=== PATIENT | male | born 1950 | race Caucasian/White ===

== ENCOUNTER 2018-04-17 06:34 | Day surgery (SDC) | payer OTHER ==
--- NOTE | 2018-04-15 10:44 | EKG ---
Test Date: 2018-04-15 Test Time: 10:16:56 [employer] Sales Representative: KELVIN MEASUREMENT RESULTS: Intervals: Rate: 53 IL: 166 QRSD: 108 QT: 396 QTc: 371 [place]: P: 57 IL: 166 QRS: 5 T: 14 INTERPRETIVE STATEMENTS: Sinus bradycardia Otherwise normal ECG Compared to ECG 10/28/2017 14:11:19 No significant changes Electronically Signed On 04-15-18 10:43:36 CDT by Laureano Gonzales
[2018-04-15 11:20] LABS: Absolute Lymphocytes (CBC) 1.2 K/uL (0.7-4.9); Absolute Monocytes 0.6 K/uL (0.1-1.3); Absolute Neutrophil 4.8 K/uL (1.8-8.0); Eosinophils % 2.3 % (0-4.4); Hematocrit 43.7 % (39.6-49.0); Lymphocytes % 17.8 % (15.3-44.8); MCH 29.7 pg (27.0-35.0); MCV 87.5 fL (80-100); MPV 9.2 fL (7.6-11.3); RBC Red Blood Cell Count 4.99 M/uL (4.33-5.43)
--- NOTE | 2018-04-15 11:26 | RAD REPORT ---
EXAM DESCRIPTION: Cassandra Cantu (2 Views)04/15/2018 10:32 am CLINICAL HISTORY: Preop for excision of a mandibular mass COMPARISON: October 2017 FINDINGS: The lungs appear clear of acute infiltrate. The heart is normal size IMPRESSION: No acute abnormalities displayed
[2018-04-15 11:29] LABS: Potassium 4.1 mmol/L (3.5-5.1)
[2018-04-17] MEDS ORDERED: CEFAZOLIN/SWI 1gm 1 GM/10 ML SYR ONE (06:46)
[2018-04-17] MEDS ORDERED: Ringers Lactate 1,000 ML IV ONE (06:46)
[2018-04-17] MEDS ORDERED: BUPIVACAINE 0.5% PF 10 ML VIAL ONE (07:03)
[2018-04-17] MEDS ORDERED: PROPOFOL 200 MG/20 ML VIAL IV ONE (07:09)
[2018-04-17] MEDS ORDERED: FENTANYL CITR 100 MCG/2 ML ONE (07:09)
[2018-04-17] MEDS ORDERED: ROCURONIUM 50 MG/5 ML VIAL IV ONE (07:09)
[2018-04-17] MEDS ORDERED: LIDOCAINE 1% MPF 5 ML VIAL ONE (07:09)
[2018-04-17] MEDS ORDERED: MIDAZOLAM HCL 2 MG/2 ML INJ ONE (07:09)
[2018-04-17] MEDS ORDERED: KETOROLAC 30 MG/ML INJ ONE (08:03)
[2018-04-17] MEDS ORDERED: ONDANSETRON HCL 40 MG/20 ML VIAL ONE (08:06)
[2018-04-17] MEDS ORDERED: SUCCINYLCHOLINE 20 MG/ML (10 ML) IV ONE (08:26)
--- NOTE | 2018-04-17 19:07 | DS ---
Date of Discharge: 04/17/2018 Discharge Note: The patient will go to Day Surgery and home when stable. Disposition: Home. Condition: Stable. Discharge Instructions: Resume home medications and diet. Activity as tolerated. No heavy lifting. Remove outer dressing in 2 days. Shower. Keep wound clean and dry. Keep Steri-Strips on at all t imes. Tylenol No. 3 one tablet p.o. q.4 p.r.n. pain. Follow up in my office in 1 week. Call for ap pointment. /MODL Voice ID: [id number] Report ID: [id number]
--- NOTE | 2018-04-17 19:07 | OP ---
Date of Procedure: 04/17/2018 Surgeon: Emil Torres MD Preoperative Diagnosis: Left face mass. Postoperative Diagnosis: Left face mass. Procedure: Excision of left face mass 4 x 2 cm with layered closure. Estimated Blood Loss: Minimal. Specimen: Left face mass. Finding: As above. Anesthesia: General. Complications: None. Disposition: The patient tolerated the procedure in stable condition and taken to Recovery in good g eneral condition. Procedure In Detail: The patient was brought to the OR and placed in supine position. General anest hesia begun. The patient's face was turned to the right side and then prepped and draped in the usua l sterile fashion. Marcaine 0.5% was infiltrated at the end of the case. A 4 cm incision was made a long skin lines at the angle of the left mid jaw. Subcutaneous tissue divided and deep to the subcut aneous tissue, a well-encapsulated nodule was present approximately 4 x 2 cm. It was excised and sen t to Pathology as specimen. Wound irrigated. Bleeding controlled with cautery. A 2-0 chromic used to approximate the subcutaneous tissue, and also closed skin. Sterile dressing was applied. The patient was awakened and taken to Recovery in good general condition. /MODL Voice ID: [id number] Report ID: [id number]
== END 2018-04-17 09:30 | disposition home or self-care (01) ==
LOC: OR 06:34
PROVIDERS: ATTEND Surgery
PROC: 0JB10ZZ Excision of Face Subcutaneous Tissue and Fascia, Open Approach (ICD-10-PCS; principal; 2018-04-17 07:30)
DX: D36.7 Benign neoplasm of other specified sites (principal); K51.90 Ulcerative colitis, unspecified, without complications
CPT/HCPCS: 13132; 21012; 36415; 71046; 80048; 85025; 88305; 93005; J0330; J0690; J2250; J2405; J3010; 88307

== ENCOUNTER 2018-04-19 09:28 | Emergency (ER) | payer OTHER ==
[2018-04-19] MEDS ORDERED: BISACODYL 10 MG RECTAL SUPP ONE (10:20)
[2018-04-19] MEDS ORDERED: NA CHLORIDE 0.9% 1,000 ML ONE (10:20)
[2018-04-19] MEDS ORDERED: LACTULOSE 20 GM/30 ML UCUP ONE (10:21)
[2018-04-19 10:37] LABS: Urine Blood NEGATIVE (NEG); Urine Glucose NEGATIVE (NEG); Urine Protein 1+ (NEG); Urine Specific Gravity 1.015 (1.005-1.030)
[2018-04-19 10:40] LABS: Urine Bacteria <20 /HPF (NONE SEEN); Urine RBC <5 /HPF (NONE SEEN)
[2018-04-19 10:40] LABS: Absolute Lymphocytes (CBC) 0.7 K/uL (0.7-4.9); Absolute Monocytes 0.8 K/uL (0.1-1.3); Absolute Neutrophil 9.5 K/uL (1.8-8.0); Basophils % 0.4 % (0-1.3); Eosinophils % 0.3 % (0-4.4); Hematocrit 43.7 % (39.6-49.0); Lymphocytes % 6.4 % (15.3-44.8); MCH 29.6 pg (27.0-35.0); MCV 88.6 fL (80-100); MPV 8.3 fL (7.6-11.3); Monocytes % 7.1 % (3.3-12.3); RBC Red Blood Cell Count 4.94 M/uL (4.33-5.43)
[2018-04-19 10:41] LABS: Urine Culture Reflex Order NOT NEEDED
[2018-04-19 11:03] LABS: ALT/SGPT 28 U/L (12-78); AST/SGOT 19 U/L (15-37); Albumin 3.9 g/dL (3.4-5.0); Alkaline Phosphatase 70 U/L (45-117); BUN Blood Urea Nitrogen 15 mg/dL (7-18); Bicarbonate 31 mmol/L (21-32); Bilirubin Direct 0.2 mg/dL (0-0.2); Bilirubin Total 1.1 mg/dL (0.2-1.0); Glucose Level 102 mg/dL (74-106); Lipase 116 U/L (73-393); Potassium 4.1 mmol/L (3.5-5.1); Protein, Total 7.6 g/dL (6.4-8.2); Sodium Level 137 mmol/L (136-145)
[2018-04-19 11:13] LABS: Amylase Level > 1300 U/L (25-115)
--- NOTE | 2018-04-19 11:59 | RAD REPORT ---
EXAM DESCRIPTION: CT - Abdomen Pelvis W Contrast - 04/19/2018 11:46 am CLINICAL HISTORY: Abdominal pain, constipation COMPARISON: CT imaging October 2017 TECHNIQUE: Biphasic, helical CT imaging of the abdomen and pelvis was performed following 100 ml non -ionic IV contrast. Oral contrast was given. All CT scans are performed using dose optimization technique as appropriate and may include automated exposure control or mA/KV adjustment according to patient size. FINDINGS: No suspicious findings in the lung bases. The liver, spleen, and pancreas show no suspicious findings. Gallbladder and biliary tree are also wi thout suspicious finding. Symmetric renal function is seen with no hydronephrosis or suspicious renal mass. No pyelonephritis o r acute renal parenchymal process. Partially filled urinary bladder shows no suspicious finding. Pros montiel gland is normal size. No gastric dilatation or gastric wall thickening. No small bowel abnormality. Appendix is normal. Mod erate severity sigmoid diverticulosis without diverticulitis. No abnormal volume of stool evident. Or al contrast has reached the splenic flexure. No appendicitis. No free air, free fluid or inflammatory stranding. No mass or bulky lymphadenopathy. Fat extends in to the origin of the left inguinal canal. No adrenal abnormality. No suspicious bony findings. IMPRESSION: Moderate sigmoid diverticulosis without diverticulitis. No significant bowel finding derek ntifiable. No abnormal stool volume. Gallbladder and biliary tree are normal range. No acute finding.
--- NOTE | 2018-04-19 12:12 | ER ---
Nurse's Notes [facility] Name: Josse Brumfield Age: 67 yrs Sex: Male : 1950 Arrival Date: 04/19/2018 Time: 09:31 Bed 20 Private MD: Reggie Pickard Diagnosis: Abdominal tenderness;Constipation;Diverticular disease of intestine Presentation: 04/19 09:41 Presenting complaint: Patient states: has been constipated since Friday, last BM was iw Friday morning, had surgery to remove cyst on left jaw Fri, has been on Tylenol with codeine since then, denies abd pain or cramping. Transition of care: patient was not received from another setting of care. Onset of symptoms was April 19, 2018. Risk Assessment: Do you want to hurt yourself or someone else? Patient reports no desire to harm self or others. Initial Sepsis Screen: Does the patient meet any 2 criteria? No. Patient's initial sepsis screen is negative. Does the patient have a suspected source of infection? No. Patient's initial sepsis screen is negative. Care prior to arrival: Medication(s) given: fleets enema, no relief. 09:41 Method Of Arrival: Ambulatory iw 09:41 Acuity: SHAHRZAD 3 iw Historical: - Allergies: 10:04 NKA; iw - PMHx: 10:04 ulcerative colitis; iw - PSHx: 10:04 cyst removal-left jaw; iw - Immunization history:: Adult Immunizations not up to date. - Social history:: Smoking status: Patient/guardian denies using tobacco. - Family history:: not pertinent. - Ebola Screening: : Patient negative for fever greater than or equal to 101.5 degrees Fahrenheit, and additional compatible Ebola Virus Disease symptoms Patient denies exposure to infectious person Patient denies travel to an Ebola-affected area in the 21 days before illness onset No symptoms or risks identified at this time. Screenin:28 Abuse screen: Denies threats or abuse. Nutritional screening: No deficits noted. em Tuberculosis screening: No symptoms or risk factors identified. Fall Risk None identified. Assessment: 10:08 General: Appears in no apparent distress. comfortable, Behavior is calm, cooperative. em General: Reports constipation since Friday, denies pain. Pain: Denies pain. Neuro: Level of Consciousness is awake, alert, obeys commands, Oriented to person, place, time, situation. Cardiovascular: Capillary refill < 3 seconds Patient's skin is warm and dry. Respiratory: Airway is patent Respiratory effort is even, unlabored, Respiratory pattern is regular, symmetrical. GI: Abdomen is round non-distended, Last BM was April 17, 2018. Bowel sounds present X 4 quads. Abd is soft X 4 quads Abdomen is tender to palpation X 4 quads. Reports constipation, Patient currently denies nausea, vomiting. : No signs and/or symptoms were reported regarding the genitourinary system. EENT: No signs and/or symptoms were reported regarding the EENT system. Derm: Skin is intact, Skin is pink, warm \T\ dry. swelling noted to left side of face, had abscess drained on Friday, steri stripped, no drainage noted. Musculoskeletal: Range of motion:. 10:20 Reassessment: Patient appears in no apparent distress at this time. I agree with above iw assessment by Denis Mullins LVN. 10:46 Reassessment: Patient appears in no apparent distress at this time. Patient and/or em family updated on plan of care and expected duration. Pain level reassessed. Patient is alert, oriented x 3, equal unlabored respirations, skin warm/dry/pink. pending CT. 11:27 Reassessment: Patient appears in no apparent distress at this time. Patient and/or em family updated on plan of care and expected duration. Pain level reassessed. Patient is alert, oriented x 3, equal unlabored respirations, skin warm/dry/pink. reports having a moderate BM, feeling better. 12:23 Reassessment: Patient appears in no apparent distress at this time. Patient and/or em family updated on plan of care and expected duration. Pain level reassessed. Patient is alert, oriented x 3, equal unlabored respirations, skin warm/dry/pink. pt up for discharge at this time, pending completion of NS bolus Patient states feeling better. 12:59 Reassessment: Patient appears in no apparent distress at this time. Patient and/or em family updated on plan of care and expected duration. Pain level reassessed. Patient is alert, oriented x 3, equal unlabored respirations, skin warm/dry/pink. pt had x 2 other BM while in ER, reports feeling better Patient states feeling better. Patient states symptoms have improved. Vital Signs: 09:44 BP 141 / 82; Pulse 73; Resp 16; Temp 98.2; Pulse Ox 98% on R/A; Weight 77.11 kg; Height iw 5 ft. 10 in. (177.80 cm); Pain 0/10; 10:47 BP 152 / 89; Pulse 79; Resp 18; Pulse Ox 96% on R/A; Pain 0/10; em 11:45 BP 135 / 79; Pulse 72; Resp 16; Pulse Ox 98% on R/A; em 12:30 BP 141 / 83; Pulse 76; Resp 18; Pulse Ox 96% on R/A; Pain 0/10; em 09:44 Body Mass Index 24.39 (77.11 kg, 177.80 cm) iw ED Course: 09:31 Patient arrived in ED. mr 09:31 Reggie Pickard MD is Private Physician. mr 09:44 Triage completed. iw 09:44 Arm band placed on. iw 09:47 Denis Mullins LVN is Primary Nurse. em 09:48 Samir Ramos MD is Attending Physician. islverio 10:24 Amylase, Serum Sent. mh5 10:24 Basic Metabolic Panel Sent. mh5 10:24 CBC with Diff Sent. 5 10:24 Creatinine for Radiology Sent. mh5 10:24 Hepatic Function Sent. 5 10:24 Lipase Sent. 5 10:24 Urine Microscopic Only Sent. mh5 10:25 Patient has correct armband on for positive identification. Placed in gown. Bed in low mh5 position. Call light in reach. Side rails up X 1. Adult w/ patient. Warm blanket given. Pillow given. Pulse ox on. NIBP on. 10:25 Initial lab(s) drawn, by de, sent to lab. Urine collected: clean catch specimen, clear. mh5 Inserted saline lock: 20 gauge in right antecubital area, using aseptic technique. Blood collected. 11:17 Notified ED physician of a critical lab result(s). Amylase=>1300. iw 11:42 CT completed. Patient moved to CT via wheelchair. Patient moved back from CT. cw1 11:47 CT Abd/Pelvis - W/Contrast In Process Unspecified. EDMS 12:12 Reggie Pickard MD is Referral Physician. silverio 12:34 No provider procedures requiring assistance completed. em 12:58 IV discontinued, intact, bleeding controlled, No redness/swelling at site. Pressure em dressing applied. Administered Medications: 10:27 Drug: NS 0.9% 1000 ml Route: IV; Rate: 1 bolus; Site: right antecubital; em 13:05 Follow up: IV Status: Completed infusion; IV Intake: 1000ml em 10: Drug: Dulcolax Suppository 10 mg Route: [place]; em 11:26 Follow up: Response: Marked relief of symptoms em 10:27 Drug: Lactulose 30 grams Volume: 45 ml; Route: PO; em 11:26 Follow up: Response: No adverse reaction; Marked relief of symptoms em 12:20 Drug: Cipro 500 mg Route: PO; em 13:05 Follow up: Response: No adverse reaction em 12:20 Drug: Flagyl 500 mg Route: PO; em 13:05 Follow up: Response: No adverse reaction em Intake: 13:05 IV: 1000ml; Total: 1000ml. em Outcome: 12:12 Discharge ordered by . [facility] 12:58 Discharged to home ambulatory, with family. em 12:58 Condition: good 12:58 Discharge instructions given to patient, family, Instructed on discharge instructions, follow up and referral plans. Demonstrated understanding of instructions, follow-up care, medications, Prescriptions given X 5 13:05 Patient left the ED. em Signatures: Dispatcher [employer] Samir Hill MD MD cha Rivera, Maria Mullins, Denis, DIESEL MAINTENANCE ELECTRICIAN DIESEL MAINTENANCE ELECTRICIAN Marilee Amin RN RN iw Woodley, Crystal [address] [facility]
--- NOTE | 2018-04-19 12:12 | EDPHYS ---
Physician Documentation [facility] Name: Josse Brumfield Age: 67 yrs Sex: Male : 1950 Arrival Date: 04/19/2018 Time: 09:31 Bed 20 Private MD: Reggie Pickard ED Physician Samir Ramos HPI: 04/19 10:19 This 67 yrs old Male presents to ER via Ambulatory with complaints of silverio Constipation. 10:19 The patient presents with abdominal pain in the upper abdomen, in the lower abdomen. silverio Onset: The symptoms/episode began/occurred 3 day(s) ago. The symptoms do not radiate. Associated signs and symptoms: none. The symptoms are described as constant, crampy, steady. Severity of pain: At its worst the pain was mild moderate in the emergency department the pain is unchanged. The patient has not experienced similar symptoms in the past. The patient has not recently seen a physician. Historical: - Allergies: 10:04 NKA; iw - PMHx: 10:04 ulcerative colitis; iw - PSHx: 10:04 cyst removal-left jaw; iw - Immunization history:: Adult Immunizations not up to date. - Social history:: Smoking status: Patient/guardian denies using tobacco. - Family history:: not pertinent. - Ebola Screening: : Patient negative for fever greater than or equal to 101.5 degrees Fahrenheit, and additional compatible Ebola Virus Disease symptoms Patient denies exposure to infectious person Patient denies travel to an Ebola-affected area in the 21 days before illness onset No symptoms or risks identified at this time. ROS: 10:19 Constitutional: Negative for fever, chills, and weight loss, Eyes: Negative for injury, silverio pain, redness, and discharge, ENT: Negative for injury, pain, and discharge, Neck: Negative for injury, pain, and swelling, Cardiovascular: Negative for chest pain, palpitations, and edema, Respiratory: Negative for shortness of breath, cough, wheezing, and pleuritic chest pain, Back: Negative for injury and pain, : Negative for injury, bleeding, discharge, and swelling, MS/Extremity: Negative for injury and deformity, Skin: Negative for injury, rash, and discoloration, Neuro: Negative for headache, weakness, numbness, tingling, and seizure, Psych: Negative for depression, anxiety, suicide ideation, homicidal ideation, and hallucinations, Allergy/Immunology: Negative for hives, rash, and allergies, Endocrine: Negative for neck swelling, polydipsia, polyuria, polyphagia, and marked weight changes, Hematologic/Lymphatic: Negative for swollen nodes, abnormal bleeding, and unusual bruising. 10:19 Abdomen/GI: Positive for abdominal pain, constipation, of the epigastric area, right upper quadrant, left upper quadrant, right lower quadrant and left lower quadrant. Exam: 10:19 Constitutional: This is a well developed, well nourished patient who is awake, alert, silverio and in no acute distress. Head/Face: Normocephalic, atraumatic. Eyes: Pupils equal round and reactive to light, extra-ocular motions intact. Lids and lashes normal. Conjunctiva and sclera are non-icteric and not injected. Cornea within normal limits. Periorbital areas with no swelling, redness, or edema. ENT: Nares patent. No nasal discharge, no septal abnormalities noted. Tympanic membranes are normal and external auditory canals are clear. Oropharynx with no redness, swelling, or masses, exudates, or evidence of obstruction, uvula midline. Mucous membranes moist. Neck: Trachea midline, no thyromegaly or masses palpated, and no cervical lymphadenopathy. Supple, full range of motion without nuchal rigidity, or vertebral point tenderness. No Meningismus. Chest/axilla: Normal chest wall appearance and motion. Nontender with no deformity. No lesions are appreciated. Cardiovascular: Regular rate and rhythm with a normal S1 and S2. No gallops, murmurs, or rubs. Normal PMI, no JVD. No pulse deficits. Respiratory: Lungs have equal breath sounds bilaterally, clear to auscultation and percussion. No rales, rhonchi or wheezes noted. No increased work of breathing, no retractions or nasal flaring. Back: No spinal tenderness. No costovertebral tenderness. Full range of motion. Male : Normal genitalia with no discharge or lesions. Skin: Warm, dry with normal turgor. Normal color with no rashes, no lesions, and no evidence of cellulitis. MS/ Extremity: Pulses equal, no cyanosis. Neurovascular intact. Full, normal range of motion. Neuro: Awake and alert, GCS 15, oriented to person, place, time, and situation. Cranial nerves II-XII grossly intact. Motor strength 5/5 in all extremities. Sensory grossly intact. Cerebellar exam normal. Normal gait. Psych: Awake, alert, with orientation to person, place and time. Behavior, mood, and affect are within normal limits. 10:19 Abdomen/GI: Inspection: distension, Bowel sounds: normal, Palpation: mild abdominal tenderness, in all quadrants, Liver: no appreciated palpable abnormalities, Hernia: not appreciated. Vital Signs: 09:44 BP 141 / 82; Pulse 73; Resp 16; Temp 98.2; Pulse Ox 98% on R/A; Weight 77.11 kg; Height iw 5 ft. 10 in. (177.80 cm); Pain 0/10; 10:47 BP 152 / 89; Pulse 79; Resp 18; Pulse Ox 96% on R/A; Pain 0/10; em 11:45 BP 135 / 79; Pulse 72; Resp 16; Pulse Ox 98% on R/A; em 12:30 BP 141 / 83; Pulse 76; Resp 18; Pulse Ox 96% on R/A; Pain 0/10; em 09:44 Body Mass Index 24.39 (77.11 kg, 177.80 cm) iw MDM: 09:48 Patient medically screened. [facility] 10:21 Data reviewed: vital signs, nurses notes, lab test result(s), radiologic studies, CT silverio scan. 04/19 09:52 Order name: Amylase, Serum; Complete Time: 11:48 [facility] 04/19 09:52 Order name: Basic Metabolic Panel; Complete Time: 11:48 [facility] 04/19 09:52 Order name: CBC with Diff 04/19 09:52 Order name: Creatinine for Radiology; Complete Time: 11:48 [facility] 04/19 09:52 Order name: Hepatic Function; Complete Time: 11:48 [facility] 04/19 09:52 Order name: Lipase; Complete Time: 11:48 [facility] 04/19 09:52 Order name: Urine Microscopic Only; Complete Time: 11:48 [facility] 04/19 09:52 Order name: CT Abd/Pelvis - W/Contrast; Complete Time: 12:09 silverio 04/19 10:23 Order name: Urine Dipstick--Ancillary (enter results); Complete Time: 11:48 bd 04/19 10:45 Order name: Manual Differential EDMS 04/19 09:52 Order name: IV Saline Lock; Complete Time: 10:24 [facility] 04/19 09:52 Order name: Labs collected and sent; Complete Time: 10: [facility] 04/19 09:52 Order name: Urine Dipstick-Ancillary (obtain specimen); Complete Time: 11:28 [facility] Administered Medications: 10: Drug: NS 0.9% 1000 ml Route: IV; Rate: 1 bolus; Site: right antecubital; em 13:05 Follow up: IV Status: Completed infusion; IV Intake: 1000ml em 10: Drug: Dulcolax Suppository 10 mg Route: [place]; em 11:26 Follow up: Response: Marked relief of symptoms em 10: Drug: Lactulose 30 grams Volume: 45 ml; Route: PO; em 11: Follow up: Response: No adverse reaction; Marked relief of symptoms em 12:20 Drug: Cipro 500 mg Route: PO; em 13:05 Follow up: Response: No adverse reaction em 12:20 Drug: Flagyl 500 mg Route: PO; em 13:05 Follow up: Response: No adverse reaction em Disposition: 04/19/18 12:12 Discharged to Home. Impression: Abdominal tenderness, Constipation, Diverticular disease of intestine. - Condition is Stable. - Discharge Instructions: Abdominal Pain, Adult, Diverticulosis, Constipation, Adult, Cass-yt-Hgjz, Abdominal Pain, Adult, [id number]-[id number]. - Prescriptions for Lactulose 10 gram/15 mL Oral Solution - take 30 milliliter by ORAL route once daily; 300 milliliter. Dulcolax 10 mg Rectal Suppository - insert 1 suppository by RECTAL route every 12 hours As needed; 10 suppository. Miralax 17 gram/dose Oral - take 1 packet by ORAL route once daily dilute powder in 8 ounces of water or juice; 14 packet. Flagyl 500 mg Oral Tablet - take 1 tablet by ORAL route every 8 hours for 7 days; 21 tablet. Cipro 500 mg Oral Tablet - take 1 tablet by ORAL route every 12 hours for 7 days; 14 tablet. - Medication Reconciliation Form, Thank You Letter, Antibiotic Education, Prescription Opioid Use form. - Follow up: Reggie Pickard; When: 2 - 3 days; Reason: Recheck today's complaints, Continuance of care, Re-evaluation by your physician. - Problem is new. - Symptoms have improved. Signatures: Dispatcher [employer] EDMS Samir Ramos MD MD cha Munoz, Edgar, POWER HAMMER OPERATOR POWER HAMMER OPERATOR em Marilee Ladd, DONTRELL RN iw Corrections: (The following items were deleted from the chart) 11:28 11:15 EKG - Nurse/Tech ordered. [facility] em 11:30 11:15 CKMB+C.LAB.BRZ ordered. [facility] 11:30 11:15 CREATINE PHOSPHOKINASE+C.LAB.BRZ ordered. [facility] 11:31 11:15 TROPONIN (EMERG DEPT USE ONLY)+C.LAB.BRZ ordered. [facility] 11:54 11:15 Chest Single View+RAD.RAD.BRZ ordered. [facility] 12:12 12:12 04/19/2018 12:12 Discharged to Home. Impression: Abdominal tenderness; silverio Constipation. Condition is Stable. Discharge Instructions: Abdominal Pain, Adult, Constipation, Adult, [id number]-[id number], Abdominal Pain, Adult, Crdr-cb-[id number]. Prescriptions for Lactulose 10 gram/15 mL Oral Solution - take 30 milliliter by ORAL route once daily; 300 milliliter, Dulcolax 10 mg Rectal Suppository - insert 1 suppository by RECTAL route every 12 hours As needed; 10 suppository, Miralax 17 gram/dose Oral - take 1 packet by ORAL route once daily dilute powder in 8 ounces of water or juice; 14 packet. and Forms are Medication Reconciliation Form, Thank You Letter, Antibiotic Education, Prescription Opioid Use. Follow up: Reggie Pickard; When: 2 - 3 days; Reason: Recheck today's complaints, Continuance of care, Re-evaluation by your physician. Problem is new. Symptoms have improved. silverio 13:05 12:12 04/19/2018 12:12 Discharged to Home. Impression: Abdominal tenderness; em Constipation; Diverticular disease of intestine. Condition is Stable. Discharge Instructions: Abdominal Pain, Adult, Constipation, Adult, [id number], Abdominal Pain, Adult, Kkkq-gf-Uekh. Prescriptions for Lactulose 10 gram/15 mL Oral Solution - take 30 milliliter by ORAL route once daily; 300 milliliter, Dulcolax 10 mg Rectal Suppository - insert 1 suppository by RECTAL route every 12 hours As needed; 10 suppository, Miralax 17 gram/dose Oral - take 1 packet by ORAL route once daily dilute powder in 8 ounces of water or juice; 14 packet. and Forms are Medication Reconciliation Form, Thank You Letter, Antibiotic Education, Prescription Opioid Use. Follow up: Reggie Pickard; When: 2 - 3 days; Reason: Recheck today's complaints, Continuance of care, Re-evaluation by your physician. Problem is new. Symptoms have improved. silverio
[2018-04-19 12:16] LABS: Blood Morphology Comment NOT SEEN (NOT SEEN); Platelet Estimate ADEQ
[2018-04-19] MEDS ORDERED: CIPROFLOXACIN HCL 500 MG TAB ONE (12:19)
[2018-04-19] MEDS ORDERED: metroNIDAZOLE 500 MG TABLET ONE (12:19)
== END 2018-04-19 13:05 | disposition home or self-care (01) ==
LOC: ER 09:28
DX: K59.00 Constipation, unspecified (principal); K57.90 Diverticulosis of intestine, part unspecified, without perforation or abscess without bleeding
CPT/HCPCS: 36415; 74177; 80048; 80076; 82150; 83690; 85025; J7030; Q9967; 81003; 81015; 96360; 96361; 99284

== ENCOUNTER 2018-04-22 19:04 | Emergency (ER) | payer OTHER ==
--- NOTE | 2018-04-22 20:27 | EDPHYS ---
Physician Documentation [facility] Name: Josse Brumfield Age: 67 yrs Sex: Male : 1950 Arrival Date: 04/22/2018 Time: 19:06 Bed 27 Private MD: ED Physician Tank Otero HPI: 04/22 20:20 This 67 yrs old Male presents to ER via Ambulatory with complaints of Cyst - gs drainage to rt side of jaw. 20:20 The affected area is on the left jaw. Previous treatment: excision if mass left face gs last week now with drainage from site, clear. The patient has not experienced similar symptoms in the past. Historical: - Allergies: 19:51 NKA; aj - Home Meds: 19:51 Niacin Oral [Active]; aj 19:52 Cipro Oral [Active]; Flagyl Oral [Active]; aj - PMHx: 19:51 ulcerative colitis; aj - PSHx: 19:51 cyst removal-left jaw; aj - Immunization history:: Adult Immunizations up to date. - Social history:: Smoking status: Patient/guardian denies using tobacco. - Ebola Screening: : Patient negative for fever greater than or equal to 101.5 degrees Fahrenheit, and additional compatible Ebola Virus Disease symptoms Patient denies exposure to infectious person Patient denies travel to an Ebola-affected area in the 21 days before illness onset No symptoms or risks identified at this time. ROS: 20:20 All other systems are negative. gs Exam: 20:20 Eyes: Pupils equal round and reactive to light, extra-ocular motions intact. Lids and gs lashes normal. Conjunctiva and sclera are non-icteric and not injected. Cornea within normal limits. Periorbital areas with no swelling, redness, or edema. ENT: Nares patent. No nasal discharge, no septal abnormalities noted. Tympanic membranes are normal and external auditory canals are clear. Oropharynx with no redness, swelling, or masses, exudates, or evidence of obstruction, uvula midline. Mucous membranes moist. Neck: Trachea midline, no thyromegaly or masses palpated, and no cervical lymphadenopathy. Supple, full range of motion without nuchal rigidity, or vertebral point tenderness. No Meningismus. Chest/axilla: Normal chest wall appearance and motion. Nontender with no deformity. No lesions are appreciated. Cardiovascular: Regular rate and rhythm with a normal S1 and S2. No gallops, murmurs, or rubs. Normal PMI, no JVD. No pulse deficits. Respiratory: Lungs have equal breath sounds bilaterally, clear to auscultation and percussion. No rales, rhonchi or wheezes noted. No increased work of breathing, no retractions or nasal flaring. Abdomen/GI: Soft, non-tender, with normal bowel sounds. No distension or tympany. No guarding or rebound. No evidence of tenderness throughout. 20:20 Constitutional: The patient appears alert, awake, non-toxic. 20:20 Head/face: Noted is swelling, that is mild, of the left jaw, of the drainage clear watery fluid. Vital Signs: 19:52 BP 138 / 87; Pulse 73; Resp 18; Temp 98.1; Pulse Ox 97% on R/A; Weight 77.11 kg; Height aj 5 ft. 10 in. (177.80 cm); 19:52 Body Mass Index 24.39 (77.11 kg, 177.80 cm) aj MDM: 20:18 Patient medically screened. 20:20 Differential diagnosis: healing wound , seroma, injury to salivary gland/duct. Data reviewed: vital signs, nurses notes. Response to treatment: There is no appreciated change of the patient's symptoms at this time. ED course: expressed clear watery fluid. 20:27 Physician consultation: Emil Torres MD regarding patient's condition, and will see patient in office, tomorrow. Administered Medications: No medications were administered Disposition: 04/22/18 20:27 Discharged to Home. Impression: facial cyst. - Condition is Stable. - Medication Reconciliation Form, Thank You Letter, Antibiotic Education, Prescription Opioid Use form. - Follow up: Emil Torres MD; When: Tomorrow; Reason: Re-evaluation by your physician. Signatures: Lillian Omer RN RN aj Starr, Gregory, MD MD Kranthi Willett RN RN jd3 Corrections: (The following items were deleted from the chart) 20:34 20:27 04/22/2018 20:27 Discharged to Home. Impression: facial cyst. Condition is jd3 Stable. Forms are Medication Reconciliation Form, Thank You Letter, Antibiotic Education, Prescription Opioid Use. Follow up: Dr. Emil Torres; When: Tomorrow; Reason: Re-evaluation by your physician. gs
--- NOTE | 2018-04-22 20:27 | ER ---
Nurse's Notes [facility] Name: Josse Brumfield Age: 67 yrs Sex: Male : 1950 Arrival Date: 04/22/2018 Time: 19:06 Bed 27 Private MD: Diagnosis: facial cyst Presentation: 04/22 19:49 Presenting complaint: Patient states: Drainage to cyst on left jaw that started today. aj Drained by Dr Torres on Friday. Transition of care: patient was not received from another setting of care. Onset of symptoms was April 22, 2018. Risk Assessment: Do you want to hurt yourself or someone else? Patient reports no desire to harm self or others. Initial Sepsis Screen: Does the patient meet any 2 criteria? No. Patient's initial sepsis screen is negative. Does the patient have a suspected source of infection? No. Patient's initial sepsis screen is negative. Care prior to arrival: None. 19:49 Method Of Arrival: Ambulatory aj 19:49 Acuity: [id number] 4 aj Triage Assessment: 19:52 General: Appears in no apparent distress. comfortable, Behavior is calm, cooperative, aj appropriate for age. Pain: Denies pain. Neuro: Level of Consciousness is awake, alert, obeys commands, Oriented to person, place, time, situation, Appropriate for age. Respiratory: Airway is patent Respiratory effort is even, unlabored, Respiratory pattern is regular, symmetrical. Derm: Skin is intact, is healthy with good turgor, Skin is pink, warm \T\ dry. normal, Wound noted left cheek Wound is draining clear liquid. Historical: - Allergies: 19:51 NKA; aj - Home Meds: 19:51 Niacin Oral [Active]; aj 19:52 Cipro Oral [Active]; Flagyl Oral [Active]; aj - PMHx: 19:51 ulcerative colitis; aj - PSHx: 19:51 cyst removal-left jaw; aj - Immunization history:: Adult Immunizations up to date. - Social history:: Smoking status: Patient/guardian denies using tobacco. - Ebola Screening: : Patient negative for fever greater than or equal to 101.5 degrees Fahrenheit, and additional compatible Ebola Virus Disease symptoms Patient denies exposure to infectious person Patient denies travel to an Ebola-affected area in the 21 days before illness onset No symptoms or risks identified at this time. Screenin:14 Abuse screen: Denies threats or abuse. Nutritional screening: No deficits noted. jd3 Tuberculosis screening: No symptoms or risk factors identified. Fall Risk Ambulatory Aid- None/Bed Rest/Nurse Assist (0 pts). Gait- Normal/Bed Rest/Wheelchair (0 pts) Mental Status- Oriented to own ability (0 pts). Total Resendiz Fall Scale indicates No Risk (0-24 pts). Assessment: 20:33 General: Appears in no apparent distress. comfortable, Behavior is calm, cooperative, jd3 appropriate for age. Pain: Denies pain. Neuro: Level of Consciousness is awake, alert, obeys commands, Oriented to person, place, time, situation. Cardiovascular: No deficits noted. Respiratory: Airway is patent Respiratory effort is even, unlabored, Respiratory pattern is regular, symmetrical. GI: No signs and/or symptoms were reported involving the gastrointestinal system. : No signs and/or symptoms were reported regarding the genitourinary system. EENT: No signs and/or symptoms were reported regarding the EENT system. Derm: Skin is intact, Skin is dry, Skin is normal, Skin temperature is warm. Musculoskeletal: Circulation, motion, and sensation intact. Range of motion: intact in all extremities. Vital Signs: 19:52 BP 138 / 87; Pulse 73; Resp 18; Temp 98.1; Pulse Ox 97% on R/A; Weight 77.11 kg; Height aj 5 ft. 10 in. (177.80 cm); 19:52 Body Mass Index 24.39 (77.11 kg, 177.80 cm) aj ED Course: 19:06 Patient arrived in ED. am2 19:51 Triage completed. aj 19:52 Arm band placed on left wrist. Patient placed in waiting room, Patient notified of wait aj time. 20:03 Tank Otero MD is Attending Physician. gs 20:14 Kranthi Willett RN is Primary Nurse. jd3 20:14 Patient has correct armband on for positive identification. Bed in low position. Call jd3 light in reach. Side rails up X 1. Adult w/ patient. 20:25 Emil Torres MD is Referral Physician. gs 20:33 No provider procedures requiring assistance completed. Patient did not have IV access jd3 during this emergency room visit. Administered Medications: No medications were administered Outcome: 20:27 Discharge ordered by . margarita 20:33 Discharged to home ambulatory, with family. jd3 20:33 Condition: stable 20:33 Discharge instructions given to patient, family, Instructed on discharge instructions, follow up and referral plans. Demonstrated understanding of instructions, follow-up care. 20:34 Patient left the ED. jd3 Signatures: Lillian Omer, RN Lillian Thompson Gregory, MD MD gs Davies, Jonathon, RN RN jd3
== END 2018-04-22 20:34 | disposition home or self-care (01) ==
LOC: ER 19:04
DX: L72.3 Sebaceous cyst (principal); Z88.1 Allergy status to other antibiotic agents; Z88.8 Allergy status to other drugs, medicaments and biological substances
CPT/HCPCS: 99281

== ENCOUNTER 2019-04-02 12:30 | Emergency (ER) | payer MEDICARE, OTHER ==
[2019-04-02 14:25] LABS: Absolute Lymphocytes (CBC) 0.7 K/uL (0.7-4.9); Basophils % 0.4 % (0-1.3); Lymphocytes % 7.7 % (15.3-44.8); MPV 8.8 fL (7.6-11.3); RBC Red Blood Cell Count 5.04 M/uL (4.33-5.43)
--- NOTE | 2019-04-02 14:26 | RAD REPORT ---
EXAM DESCRIPTION: CT - Head C Spine Mpr Wo Con - 04/02/2019 1:55 pm CLINICAL HISTORY: Head and neck injury status post fall. Head and neck pain COMPARISON: 2018 TECHNIQUE: Computed axial tomography of the head and cervical spine was obtained. Sagittal and coronal reconstruction was performed. All CT scans are performed using dose optimization technique as appropriate and may include automated exposure control or mA/KV adjustment according to patient size. FINDINGS: An intracranial bleed is not seen. The ventricles are normal in caliber. An extra-axial fl uid collection is not noted.Fluid within the visualized sinuses and mastoids is not seen A cervical fracture is not visualized. No dislocation is noted. IMPRESSION: No acute intracranial abnormality is seen. A cervical fracture is not visualized. If the patient continues to have symptoms to suggest intracra nial /spinal cord pathology then MRI would be recommended
[2019-04-02 14:29] LABS: Protime INR 0.99
--- NOTE | 2019-04-02 14:32 | RAD REPORT ---
EXAM DESCRIPTION: CT - Facial Bones W/ Mpr - 04/02/2019 1:55 pm CLINICAL HISTORY: Facial injury status post fall with pain COMPARISON: none TECHNIQUE: Computed axial tomography of the face was obtained. Coronal and sagittal reconstruction w as performed. All CT scans are performed using dose optimization technique as appropriate and may include automated exposure control or mA/KV adjustment according to patient size. FINDINGS: A fracture involves the junction of the anterior nasal septum with the maxilla. An additio nal comminuted fracture involves the posterior nasal septum. A TMJ dislocation is not noted. The globes are intact. Fluid within the sinuses is not seen. IMPRESSION: A fracture involves the junction of the anterior nasal septum with the maxilla. An addit ional comminuted fracture involves the posterior nasal septum.
--- NOTE | 2019-04-02 14:34 | RAD REPORT ---
EXAM DESCRIPTION: Cassandra Single View04/02/2019 2:01 pm CLINICAL HISTORY: Chest pain COMPARISON: April 2018 FINDINGS: The lungs appear clear of acute infiltrate. The heart is normal size IMPRESSION: No acute abnormalities displayed
[2019-04-02 14:45] LABS: ALT/SGPT 28 U/L (12-78); AST/SGOT 17 U/L (15-37); Albumin 4.2 g/dL (3.4-5.0); Alkaline Phosphatase 63 U/L (45-117); BUN Blood Urea Nitrogen 15 mg/dL (7-18); Bicarbonate 27 mmol/L (21-32); Bilirubin Direct 0.1 mg/dL (0-0.2); Bilirubin Total 0.5 mg/dL (0.2-1.0); Glucose Level 92 mg/dL (74-106); Magnesium 2.5 mg/dL (1.8-2.4); NT PRO-BNP 29 pg/mL (<125); Potassium 4.3 mmol/L (3.5-5.1); Protein, Total 7.4 g/dL (6.4-8.2); Sodium Level 141 mmol/L (136-145); Troponin (Emerg Dept Use Only) < 0.02 ng/mL (0.0-0.045)
[2019-04-02] MEDS ORDERED: LIDOCAINE 1% MPF 5 ML VIAL ONE (14:57)
[2019-04-02 16:54] LABS: Blood Morphology Comment NOT SEEN (NOT SEEN); Platelet Estimate ADEQ; Urine White Blood Cell Casts OK
--- NOTE | 2019-04-02 18:01 | RAD REPORT ---
EXAM DESCRIPTION: US - CP - 04/02/2019 5:24 pm CLINICAL HISTORY: Syncope COMPARISON: None. TECHNIQUE: Real-time sonographic evaluation of both carotid systems was performed. Gilman scale and Do ppler interrogation were performed with waveform tracing bilaterally. FINDINGS: Normal high resistance waveforms are noted in both external carotid arteries. The common c arotid arteries and internal carotid arteries show normal low resistance waveforms. No significant plaque formation is seen. Bilateral common carotid and left internal carotid artery's are quite tortuous. Peak systolic and end diastolic velocity values and the ICA/CCA ratios are in the non-hemodynamically significant range. Antegrade flow seen in both vertebral arteries. Velocity values and ratios were recorded and are retained in the patient's imaging records. IMPRESSION: No significant atherosclerotic changes noted. No evidence of a hemodynamically significant stenosis.
--- NOTE | 2019-04-02 18:31 | EDPHYS ---
Physician Documentation [facility] Name: Josse Brumfield Age: 68 yrs Sex: Male : 1950 Arrival Date: 04/02/2019 Time: 12:34 Bed 17 Private MD: Jean Paul Garcia T ED Physician Naeem Washington HPI: 04/02 13:35 This 68 yrs old Male presents to ER via Ambulatory with complaints of cp Laceration To Lip. 13:35 The patient has experienced syncope, lost consciousness. Onset: The symptoms/episode cp began/occurred this morning. 13:35 Duration: This was a single episode, that lasted an unknown period of time. Context: cp occurred at home, occurred while the patient was standing, Just prior to the episode the patient experienced dizziness. Associated injury: Head/face: upper lip, laceration. Associated signs and symptoms: Pertinent negatives: abdominal pain, chest pain, confusion, diaphoresis, headache, numbness, palpitations, seizure. Current symptoms: Currently, the patient is not experiencing any symptoms, the patient feels back to baseline. Historical: - Allergies: 12:54 NKA; hb - PMHx: 12:54 ulcerative colitis; hb - PSHx: 12:54 cyst removal-left jaw; hb 12:55 Carpal Tunnel Repair; hb - Immunization history:: Adult Immunizations up to date. - Social history:: Smoking status: Patient/guardian denies using tobacco. - Ebola Screening: : No symptoms or risks identified at this time. ROS: 13:40 Constitutional: Negative for body aches, chills, fever, poor PO intake. cp 13:40 Eyes: Negative for injury, pain, redness, and discharge. cp 13:40 ENT: Negative for drainage from ear(s), ear pain, sore throat, difficulty swallowing, difficulty handling secretions. 13:40 Cardiovascular: Negative for chest pain, edema, palpitations. 13:40 Respiratory: Negative for cough, shortness of breath, wheezing. 13:40 Abdomen/GI: Negative for abdominal pain, nausea, vomiting, and diarrhea. 13:40 Skin: Positive for laceration(s), of the upper lip. 13:40 Neuro: Positive for dizziness, syncope, Negative for altered mental status, headache, numbness, weakness. 13:40 All other systems are negative. Exam: 13:40 ECG was reviewed by the Attending Physician. cp 13:50 Constitutional: The patient appears in no acute distress, alert, awake, cp non-diaphoretic, non-toxic, well developed, well nourished. 13:50 Head/face: Noted is a laceration(s), that is deep, of the upper lip, swelling, that is cp moderate, of the nose, tenderness, that is mild, of the nose, Sinus tenderness, is not appreciated. 13:50 Eyes: Periorbital structures: appear normal, Pupils: equal, round, and reactive to light and accomodation, Extraocular movements: intact throughout, Conjunctiva: normal, no exudate, no injection, Lids and lashes: appear normal, bilaterally. 13:50 ENT: External ear(s): are unremarkable, Ear canal(s): are normal, clear, TM's: dullness, bilaterally, Nose: is normal, Mouth: Lips: moist, Oral mucosa: pink and intact, moist, Posterior pharynx: Airway: no evidence of obstruction, patent, Tonsils: are normal in appearance, swelling, is not appreciated, erythema, is not appreciated. 13:50 Neck: C-spine: C-collar placed in ED, vertebral tenderness, that is mild, crepitus, is not appreciated. 13:50 Chest/axilla: Inspection: normal, Palpation: is normal, no crepitus, no tenderness. 13:50 Cardiovascular: Rate: bradycardic, Rhythm: regular, Pulses: Pulses are 2+ in right radial artery and left radial artery. Heart sounds: murmur, not appreciated, Edema: is not appreciated, JVD: is not appreciated. 13:50 Respiratory: the patient does not display signs of respiratory distress, Respirations: normal, no use of accessory muscles, no retractions, no splinting, no tachypnea, labored breathing, is not present, Breath sounds: are clear throughout, no decreased breath sounds, no stridor, no wheezing. 13:50 Abdomen/GI: Inspection: abdomen appears normal, Bowel sounds: normal, in all quadrants, Palpation: abdomen is soft and non-tender, rebound tenderness, is not appreciated, voluntary guarding, is not appreciated, involuntary guarding, is not appreciated. 13:50 Back: pain, is absent, ROM is normal. 13:50 Musculoskeletal/extremity: Exam is negative for decreased range of motion, deformity, injury. Vital Signs: 12:54 BP 149 / 73; Pulse 63; Resp 16; Temp 98.1; Pulse Ox 97% on R/A; Weight 77.11 kg; Height hb 5 ft. 10 in. (177.80 cm); Pain 0/10; 13:30 BP 138 / 89; Pulse 58; Resp 18; Pulse Ox 99% on R/A; Pain 0/10; em 15:30 BP 152 / 92; Pulse 59; Resp 16; Pulse Ox 97% on R/A; Pain 0/10; em 15:48 BP 145 / 82 Supine; Pulse 57; jb1 15:48 BP 150 / 87 Sitting; Pulse 55; jb1 15:48 BP 151 / 89 Standing; Pulse 57; jb1 16:00 BP 147 / 86; Pulse 61; Resp 18; Pulse Ox 99% on R/A; Pain 0/10; em 17:20 BP 151 / 94; Pulse 73; Resp 18; Pulse Ox 98% on R/A; Pain 0/10; em 18:20 BP 148 / 78; Pulse 68; Resp 17; Pulse Ox 99% on R/A; Pain 0/10; em 12:54 Body Mass Index 24.39 (77.11 kg, 177.80 cm) hb Laceration: 17:20 Wound Repair of 4cm ( 1.6in ) full thickness laceration to upper lip. Irregularly cp shaped.. Distal neuro/vascular/tendon intact. Anesthesia: Wound infiltrated with 3 mls of 1% lidocaine. Wound prep: Simple cleansing by template reproduction technician. Skin closed with 3 6-0 Prolene using simple sutures and sterile technique. Mucosal layer closed with 4 5-0 Vicryl using simple sutures and sterile technique. Dressed with Bacitracin. Patient tolerated well. MDM: 13:20 Patient medically screened. cp 16:10 Physician consultation: Shannon Daniels MD was called at 16:10, was contacted at 16:10, cp regarding admission, to the telemetry unit. would like further tests performed, carotid ultrasound. 18:15 Data reviewed: vital signs, nurses notes, lab test result(s), EKG, radiologic studies, cp plain films, ultrasound, and as a result, I will discharge patient. 18:15 Test interpretation: by ED physician or midlevel provider: ECG. Counseling: I had a cp detailed discussion with the patient and/or guardian regarding: the historical points, exam findings, and any diagnostic results supporting the discharge/admit diagnosis, lab results, radiology results, the need for outpatient follow up, for definitive care, a general service technician, to return to the emergency department if symptoms worsen or persist or if there are any questions or concerns that arise at home. Response to treatment: the patient's symptoms have markedly improved after treatment. 04/02 13:29 Order name: Basic Metabolic Panel; Complete Time: 14:48 cp 04/02 13:29 Order name: CBC with Diff; Complete Time: 17:20 cp 04/02 13:29 Order name: LFT's; Complete Time: 14:48 cp 04/02 13:29 Order name: Magnesium; Complete Time: 14:48 cp 04/02 13:29 Order name: NT PRO-BNP; Complete Time: 14:48 cp 04/02 13:29 Order name: PT-INR; Complete Time: 14:35 cp 04/02 13:29 Order name: CT Head C Spine; Complete Time: 14:35 cp 04/02 13:29 Order name: CT Facial Bones W/O Con; Complete Time: 14:35 cp 04/02 13:29 Order name: Troponin (emerg Dept Use Only); Complete Time: 14:48 cp 04/02 13:29 Order name: XRAY Chest (1 view); Complete Time: 14:35 cp 04/02 13:29 Order name: Ptt, Activated; Complete Time: 14:35 cp 04/02 16:09 Order name: Carotid Artery Bilateral US; Complete Time: 18:07 cp 04/02 16:54 Order name: CBC Smear Scan; Complete Time: 17:20 EDMS 04/02 13:29 Order name: EKG; Complete Time: 13:30 cp 04/02 13:29 Order name: Cardiac monitoring; Complete Time: 15:03 cp 04/02 13:29 Order name: EKG - Nurse/Tech; Complete Time: 15:03 cp 04/02 13:29 Order name: IV Saline Lock; Complete Time: 15:03 cp 04/02 13:29 Order name: Labs collected and sent; Complete Time: 15:03 cp 04/02 13:29 Order name: O2 Per Protocol; Complete Time: 15:03 cp 04/02 13:29 Order name: O2 Sat Monitoring; Complete Time: 15:03 cp 04/02 13:29 Order name: C-Collar; Complete Time: 15:03 cp 04/02 14:37 Order name: Orthostatics; Complete Time: 15:49 cp 04/02 14:49 Order name: Prolene, Sutures; Complete Time: 15:12 cp 04/02 14:49 Order name: Dressing - Wound; Complete Time: 15:12 cp 04/02 14:49 Order name: Gloves, Sterile; Complete Time: 15:12 cp 04/02 14:49 Order name: Setup Suture Tray; Complete Time: 15:12 cp EC:40 Rate is 57 beats/min. Rhythm is regular. PA interval is normal. QRS interval is cp prolonged at 104 msec. QT interval is normal. Interpreted by me. Reviewed by me. Administered Medications: 15:25 Drug: Lidocaine (1 %) 5 ml {Note: administered by SANTOS Dawson.} Volume: 20 ml; Route: em Infiltration; Site: wound; 15:30 Follow up: Response: No adverse reaction; Pain is decreased em Disposition: 19:00 Chart complete. cp Disposition: 04/02/19 18:30 Discharged to Home. Impression: Syncope and collapse, Laceration of lip and oral cavity without foreign body, Fracture of nasal bones. - Condition is Stable. - Discharge Instructions: Facial Laceration, Nasal Fracture, Syncope. - Medication Reconciliation Form, Thank You Letter, Antibiotic Education, Prescription Opioid Use form. - Follow up: Keke Cheema MD; When: 2 - 3 days; Reason: nasal fracture and lip laceration. Follow up: Aleksandar Mendoza MD; When: 2 - 3 days; Reason: syncope. - Problem is new. - Symptoms have improved. Addendum: 04/05/2019 09:05 Co-signature as Attending Physician, Naeem Washington MD I agree with the assessment and k dr plan of care. Signatures: Dispatcher [employer] Naeem Alexander MD MD kdr Munoz, Edgar, SEASONAL TAX PREPARER SEASONAL TAX PREPARER em Page, SANTOS Dawson cp Haritha Torre, DONTRELL RN Corrections: (The following items were deleted from the chart) 04/02 15:46 15:46 NPO ordered. cp cp 18:49 18:30 04/02/2019 18:30 Discharged to Home. Impression: Syncope and collapse; Laceration em of lip and oral cavity without foreign body; Fracture of nasal bones. Condition is Stable. Forms are Medication Reconciliation Form, Thank You Letter, Antibiotic Education, Prescription Opioid Use. Follow up: Keke Cheema; When: 2 - 3 days; Reason: nasal fracture and lip laceration. Follow up: Aleksandar Mendoza; When: 2 - 3 days; Reason: syncope. Problem is new. Symptoms have improved. cp
--- NOTE | 2019-04-02 18:31 | ER ---
Nurse's Notes [facility] Name: Josse Brumfield Age: 68 yrs Sex: Male : 1950 Arrival Date: 04/02/2019 Time: 12:34 Bed 17 Private MD: Jean Paul Garcia T Diagnosis: Syncope and collapse;Laceration of lip and oral cavity without foreign body;Fracture of nasal bones Presentation: 04/02 12:51 Presenting complaint: Laceration to inner and outer upper lip after syncopal episode hb today at 0715. Pt reports he became dizzy when he stood getting out of bed, sat back down on the bed, passed out and landed on hardwood floor. Transition of care: patient was not received from another setting of care. Complicating Factors: There are no complicating factors for this patient. Onset of symptoms was April 02, 2019. Risk Assessment: Do you want to hurt yourself or someone else? Patient reports no desire to harm self or others. Initial Sepsis Screen: Does the patient meet any 2 criteria? No. Patient's initial sepsis screen is negative. Does the patient have a suspected source of infection? No. Patient's initial sepsis screen is negative. Care prior to arrival: None. 12:51 Method Of Arrival: Ambulatory hb 12:51 Acuity: SHAHRZAD 3 hb Historical: - Allergies: 12:54 NKA; hb - PMHx: 12:54 ulcerative colitis; hb - PSHx: 12:54 cyst removal-left jaw; hb 12:55 Carpal Tunnel Repair; hb - Immunization history:: Adult Immunizations up to date. - Social history:: Smoking status: Patient/guardian denies using tobacco. - Ebola Screening: : No symptoms or risks identified at this time. Screenin:30 Abuse screen: Denies threats or abuse. Nutritional screening: No deficits noted. em Tuberculosis screening: No symptoms or risk factors identified. Fall Risk Fall in past 12 months (25 points). Ambulatory Aid- None/Bed Rest/Nurse Assist (0 pts). Gait- Normal/Bed Rest/Wheelchair (0 pts) Mental Status- Oriented to own ability (0 pts). Total Resendiz Fall Scale indicates Low Risk Score (25-44 pts). Placed close to Nursing Station Frequent Obs/Assesments occuring. Assessment: 13:30 General: Appears in no apparent distress. comfortable, Behavior is calm, cooperative, em Reports have a syncopal episode this morning around 0715, felt dizzy after standing up and passed out and fell on hardwood floor, laceration noted to inside of upper lip, denies being dizzy now. Pain: Denies pain. Neuro: Level of Consciousness is awake, alert, obeys commands, Oriented to person, place, time, situation, Denies weakness blurred vision dizziness, numbness. Cardiovascular: Capillary refill < 3 seconds Patient's skin is warm and dry. Rhythm is sinus rhythm. Respiratory: Airway is patent Respiratory effort is even, unlabored, Respiratory pattern is regular, symmetrical. GI: Abdomen is flat, Patient currently denies nausea, vomiting. Derm: Skin is intact, is healthy with good turgor, Skin is pink, warm \T\ dry. Musculoskeletal: Capillary refill < 3 seconds, Range of motion: intact in all extremities. Injury Description: Laceration sustained to upper lip is clean, 0.5 to 2.5 cm long, not bleeding, was sustained 6-12 hours ago. is bleeding no active bleeding noted. 13:30 Reassessment: I agree with assessment completed by Denis Mullins LVN . aa5 13:35 Reassessment: placed C-collar on patient, checked by provider. em 14:30 Reassessment: Patient appears in no apparent distress at this time. Patient and/or em family updated on plan of care and expected duration. Pain level reassessed. Patient is alert, oriented x 3, equal unlabored respirations, skin warm/dry/pink. 15:35 Reassessment: Patient appears in no apparent distress at this time. Patient and/or em family updated on plan of care and expected duration. Pain level reassessed. Patient is alert, oriented x 3, equal unlabored respirations, skin warm/dry/pink. 16:40 Reassessment: Patient appears in no apparent distress at this time. wheeled to US via em wheelchair. 17:03 Reassessment: Patient appears in no apparent distress at this time. returned from US. em 18:20 Reassessment: Patient appears in no apparent distress at this time. Patient and/or em family updated on plan of care and expected duration. Pain level reassessed. Patient is alert, oriented x 3, equal unlabored respirations, skin warm/dry/pink. Patient denies pain at this time. Patient states feeling better. Vital Signs: 12:54 BP 149 / 73; Pulse 63; Resp 16; Temp 98.1; Pulse Ox 97% on R/A; Weight 77.11 kg; Height hb 5 ft. 10 in. (177.80 cm); Pain 0/10; 13:30 BP 138 / 89; Pulse 58; Resp 18; Pulse Ox 99% on R/A; Pain 0/10; em 15:30 BP 152 / 92; Pulse 59; Resp 16; Pulse Ox 97% on R/A; Pain 0/10; em 15:48 BP 145 / 82 Supine; Pulse 57; jb1 15:48 BP 150 / 87 Sitting; Pulse 55; jb1 15:48 BP 151 / 89 Standing; Pulse 57; jb1 16:00 BP 147 / 86; Pulse 61; Resp 18; Pulse Ox 99% on R/A; Pain 0/10; em 17:20 BP 151 / 94; Pulse 73; Resp 18; Pulse Ox 98% on R/A; Pain 0/10; em 18:20 BP 148 / 78; Pulse 68; Resp 17; Pulse Ox 99% on R/A; Pain 0/10; em 12:54 Body Mass Index 24.39 (77.11 kg, 177.80 cm) hb ED Course: 12:34 Patient arrived in ED. as 12:35 Jean Paul Garcia MD is Private Physician. as 12:54 Triage completed. hb 12:55 Arm band placed on. hb 12:56 Denis Mullins LVN is Primary Nurse. em 13:02 Samir Villegas PA is PHCP. cp 13:02 Naeem Washington MD is Attending Physician. cp 13:30 Patient has correct armband on for positive identification. Placed in gown. Bed in low em position. Call light in reach. library monitor on. Pulse ox on. NIBP on. 13:55 CT Head C Spine In Process Unspecified. EDMS 13:55 CT Facial Bones W/O Con In Process Unspecified. EDMS 13:58 X-ray completed. Patient tolerated procedure well. Patient moved to radiology via ml wheelchair. Patient moved back from radiology. 13:58 EKG done, by social service technician. reviewed by Samir GRAHAM. at1 13:59 XRAY Chest (1 view) In Process Unspecified. EDMS 15:30 Assist provider with laceration repair on upper lip that was 2.5 cm. or less using em sutures. Set up tray. Performed by Samir GRAHAM Patient tolerated well. 17:26 Carotid Artery Bilateral US In Process Unspecified. EDMS 18:28 Keke Cheema MD is Referral Physician. cp 18:29 Aleksandar Mendoza MD is Referral Physician. cp 18:48 IV discontinued, intact, bleeding controlled, No redness/swelling at site. Pressure em dressing applied. Administered Medications: 15:25 Drug: Lidocaine (1 %) 5 ml {Note: administered by SANTOS Dawson.} Volume: 20 ml; Route: em Infiltration; Site: wound; 15:30 Follow up: Response: No adverse reaction; Pain is decreased em Outcome: 18:30 Discharge ordered by MD. cp 18:48 Discharged to home ambulatory, with family. em 18:48 Condition: good 18:48 Discharge instructions given to patient, Instructed on discharge instructions, follow up and referral plans. Demonstrated understanding of instructions, follow-up care. 18:49 Patient left the ED. em Signatures: Dispatcher [employer] EDMS Warren Rose jb1 Denis Mullins, DRAFTING DETAILER DRAFTING DETAILER em Arely Cooley Melissa ml Calderon, Audri, RN RN aa5 Lillian Aldana, rotary furnace operator EKG Tat1 Samir Villegas PA PA cp Baxter, Heather, RN DONTRELL hb
--- NOTE | 2019-04-03 06:49 | EKG ---
Test Date: 2019-04-02 Test Time: 13:33:45 Squad Leader: MICHELLE MEASUREMENT RESULTS: Intervals: Rate: 57 FL: 166 QRSD: 104 QT: 394 QTc: 383 [place]: P: 55 FL: 166 QRS: -11 T: 17 INTERPRETIVE STATEMENTS: Sinus bradycardia Otherwise normal ECG Compared to ECG 04/15/2018 10:16:56 No significant changes Electronically Signed On 04-03-19 06:46:13 CDT by Aleksandar Mendoza
== END 2019-04-02 18:49 | disposition home or self-care (01) ==
LOC: ER 12:30
PROC: 0CQ0XZZ Repair Upper Lip, External Approach (ICD-10-PCS; principal; 2019-04-02)
DX: R55 Syncope and collapse (principal); S01.511A Laceration without foreign body of lip, initial encounter; S02.2XXA Fracture of nasal bones, initial encounter for closed fracture; W18.30XA Fall on same level, unspecified, initial encounter; Y92.009 Unspecified place in unspecified non-institutional (private) residence as the place of occurrence of the external cause
CPT/HCPCS: 36415; 70450; 70486; 71045; 72125; 76377; 80048; 80076; 83735; 83880; 84484; 85025; 85610; 85730; 93005; 93880; 99284

== ENCOUNTER 2024-07-05 10:11 | Emergency (ER) | payer OTHER ==
--- OUTSIDE RECORDS SUMMARY | 2024-07-05 10:14 | XMS REPORT | Continuity of Care Document ---
Author Name Unknown Address [address] [place] [address] [facility] Address [address] [place] [address] Care Team Providers Care Landscape Laborer Name Role Phone Garcia Jean Paul Nicholas Primary Care Physician [phone] VINICIO MENSAH Attending Clinician VINICIO Hood Attending Clinician Vinicio Hood MD Attending Clinician [phone] BRETT JUAN Attending Clinician Brett Bender Attending Clinician [phone] Doctor Unassigned, [place] Attending Clinician U navailable Payers Payer Name Policy Type Policy Number Effective Date Expirati on Date Source JERMAINE/[employer]AMP MEDICARE ADVANTAGE [id number] 2022 00:00:00 Allergies, Adverse Reactions, Alerts Allergy Name Allergy Type Status Severity Reaction(s) Onset Date Inactive Date Treating Clinician Comments Source NO KNOWN ALLERGIE S Drug Class Active [facility] Social History Social Habit Start Date Stop Date Quantity Comments Source Gender identity [facility] History of Social function 2024-02-25 00:00:00 2024-02-25 00:00:00 [facility] Exposure to SARS-CoV-2 (event) 2022-12-23 00:00:00 2023-01-02 14:49:00 Not sure [facility] Tobacco use and exposure 2023-01-02 00:00:00 2023-01-02 00:00:00 Smokeless tobacco non-user [facility] Sex assigned at 1950 00:00:00 1950 00:00:00 [facility] Smoking Status Start Date Stop Date Source Tobacco smoking consumption unknown [facility] Never smoked tobacco [facility] Medications Ordered Medication Name Filled Medication Name Start Date Stop Date Current Medication? Ordering Clinician Indication Dosage Frequency Signature (SIG) Comments Components Source triamcinolo ne acetonide (KENALOG) injection 16 mg 02-24 05:00: 00 02-24 16:59 :00 No [id number] 16mg [facility] triamcinolo ne acetonide (KENALOG) injection 40 mg 05-02 15:45: 00 05-02 14:38 :00 No [id number] 9100 40mg [facility] Vital Signs Vital Name Observation Time Observation Value Comments S tommaxi Body height 2024-02-25 18:30:00 177.8 cm [facility] Body weight 2024-02-25 18:30:00 77.792 kg [facility] BMI 2024-02-25 18:30:00 24.61 kg/m2 [facility] Body weight 2023-05-02 14:37:00 79.379 kg [facility] BMI 2023-05-02 14:37:00 25.11 kg/m2 [facility] Systolic blood pressure 2023-01-02 20:03:00 140 mm[Hg] [facility] Diastolic blood pressure 2023-01-02 20:03:00 80 mm[Hg] [facility] Heart rate 2023-01-02 19:59:00 67 /min [facility] Respiratory rate 2023-01-02 19:59:00 18 /min [facility] Body height 2023-01-02 19:59:00 177.8 cm [facility] Body weight 2023-01-02 19:59:00 79.561 kg [facility] BMI 2023-01-02 19:59:00 25.17 kg/m2 [facility] Oxygen saturation in Arterial blood by Pulse oximetry 2023-01-02 19:59:00 95 /min [facility] Procedures Procedure Date / Time Performed Performing Clinicia n Source ASSIGNMENT OF BENEFITS 2023-01-02 19:51:26 Docto r Unassigned, [place] [facility] Encounters Start Date/Time End Date/Time Encounter Type Admission Type Attending [facility] Care Department Encounter ID Source 2024-02-25 13:30:00 2024-02-25 14:09:09 Outpatient R VINICIO MENSAH [facility] [id number] [facility] 2024-02-25 13:30:00 2024-02-25 14:09:09 Office Visit Vinicio Mensah [facility] MEDICAL OFFICE BUILDING [id number] [facility] 2023-05-02 09:00:00 2023-05-02 10:19:13 Outpatient R BRETT JUAN [facility] [id number] [facility] 2023-05-02 09:00:00 2023-05-02 10:19:13 Office Visit Cirilo [facility] MED[facility] OFF[facility] BU[facility] [id number] [facility] 2023-01-02 15:19:57 2023-01-02 23:59:00 [facility] [id number] 2023-01-02 15:00:00 2023-01-02 15:15:00 Office Visit Cirilo [facility] MEDICAL OFFICE BUILDING [id number] [facility] 2023-01-02 00:00:00 2023-01-02 00:00:00 Orders Only Doctor Unassigned, [place] [facility] [id number] [facility]
[2024-07-05 10:30] LABS: Absolute Basophils 0.1 K/uL (0-0.5); Absolute Eosinophils 0.1 K/uL (0-0.5); Absolute Lymphocytes (CBC) 0.8 K/uL (0.7-4.9); Absolute Monocytes 0.5 K/uL (0.1-1.3); Absolute Neutrophil 8.1 K/uL (1.8-8.0); Basophils % 0.7 % (0-1.3); Eosinophils % 1.3 % (0-4.4); Hematocrit 40.8 % (39.6-49.0); Lymphocytes % 7.8 % (15.3-44.8); MCH 29.9 pg (27.0-35.0); MCHC 34.2 g/dL (32.0-36.0); MCV 87.4 fL (80-100); MPV 7.9 fL (7.6-11.3); Monocytes % 5.5 % (3.3-12.3); Neutrophils % 84.7 % (41.7-73.7); Platelets 234 thou/uL (152-406); RBC Red Blood Cell Count 4.67 M/uL (4.33-5.43)
[2024-07-05 10:51] LABS: ALT/SGPT 31 U/L (16-61); AST/SGOT 17 U/L (15-37); Albumin 3.6 g/dL (3.4-5.0); Albumin/Globulin Ratio 1.2 (1.1-1.8); Alkaline Phosphatase 53 U/L (45-117); Anion Gap 9.7 mEq/L (5.0-15.0); BUN Blood Urea Nitrogen 23 mg/dL (7-18); Bicarbonate 25 mEq/L (21-32); Bilirubin Total 0.5 mg/dL (0.2-1.0); Globulin 3.1 g/dL (2.3-3.5); Glomerular Filtration Rate 62 ml/min (=/>90); Glucose Level 169 mg/dL (74-106); NT PRO-BNP 49 pg/mL (<125); Potassium 3.7 mEq/L (3.5-5.1); Protein, Total 6.7 g/dL (6.4-8.2); Sodium Level 137 mEq/L (136-145)
[2024-07-05 10:52] LABS: Bilirubin Direct < 0.2 mg/dL (0-0.2); Bilirubin Indirect, Calculated 0.3 mg/dL (0.2-0.8)
[2024-07-05 10:54] LABS: Troponin High Sensitivity 87.7 pg/mL (<58.9)
--- NOTE | 2024-07-05 11:33 | EDPHYS ---
Physician Documentation [facility] Name: Josse Brumfield Age: 74 yrs Sex: Male : 1950 Arrival Date: 07/05/2024 Time: 10:11 Bed 3 Private MD: ED Physician Lb Urena HPI: 07/05 10:45 This 74 yrs old Male presents to ER via EMS with complaints of Chest Pain > 30 y/o. rn 10:45 The patient or guardian reports chest pain that is located primarily in the substernal rn area. Onset: just prior to arrival. The pain radiates to the left arm. Associated signs and symptoms: Pertinent positives: None. diaphoresis, shortness of breath, Pertinent negatives: abdominal pain, cough, syncope, vomiting. The chest pain is described as a heaviness, a pressure. Duration: The patient or guardian reports a single episode, that is now resolved. Modifying factors: The symptoms are alleviated by ASA, NTG, the symptoms are aggravated by nothing. Severity of pain: At its worst the pain was moderate in the emergency department the pain has resolved. The patient has not experienced similar symptoms in the past. 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 Reports radiates to the left arm and has tingling in the left arm. Chest pain resolved after aspirin x 2 and nitroglycerin by EMS. Denies previous LA. Reports associated shortness of breath as well. No recent illness or sickness. No cough. No trauma. No abdominal pain or back pain. No current chest pain.. Historical: - Allergies: 10:22 PENICILLINS; ko1 - Home Meds: 10:22 Unable to obtain [Active]; ko1 - PMHx: 10:22 ulcerative colitis; Hypertensive disorder; ko1 - PSHx: 10:22 carpal tunnel; ko1 - Immunization history:: Adult Immunizations up to date. - Infectious Disease History:: Denies. - Social history:: Smoking status: Patient denies any tobacco usage or history of. - Family history:: not pertinent. - Hospitalizations: : No recent hospitalization is reported. ROS: 10:45 Constitutional: Negative for fever, chills, and weight loss, Cardiovascular: Positive rn for chest pain Respiratory: Negative for cough, wheezing, and pleuritic chest pain, Abdomen/GI: Negative for abdominal pain, nausea, vomiting, diarrhea, and constipation, Back: Negative for injury and pain, MS/Extremity: Negative for injury and deformity, Skin: Negative for injury, rash, and discoloration, Neuro: Negative for headache, weakness, numbness, tingling, and seizure, Exam: 10:45 Constitutional: This is a well developed, well nourished patient who is awake, alert, rn and in no acute distress. Head/Face: Normocephalic, atraumatic. Cardiovascular: Regular rate and rhythm. No pulse deficits. Respiratory: No increased work of breathing, no retractions or nasal flaring. Abdomen/GI: Soft, non-tender MS/ Extremity: Pulses equal, no cyanosis. Neurovascular intact. Full, normal range of motion. Equal circumference. Neuro: Awake and alert, GCS 15 12:42 ECG was reviewed by the Attending Physician. rn Vital Signs: 10:20 BP 108 / 73; Pulse 62; Resp 16; Temp 97; Pulse Ox 98% on R/A; ko1 10:57 BP 116 / 76; Pulse 58; Resp 15; Pulse Ox 99% ; ko1 11:35 Weight 77.11 kg; ko1 13:17 BP 124 / 78; Pulse 60; Resp 16; Pulse Ox 99% ; ko1 MDM: 10:12 Medical Screening Exam initiated rn 11:29 Differential diagnosis: acute myocardial infarction, acute pericarditis, anxiety, rn coronary artery disease pericarditis, stable angina, unstable angina. HEART Score: History: Highly Suspicious (2), ECG: Non specific repolarization disturbance / LBTB / PM (1), Age: > or = 65 years (2), Risk Factors: 1 or 2 risk factors (1), Troponin: > 1 and < 3 x normal limit (1), Total Score = 7. 11:32 The patient was not given aspirin in the Emergency Department. Patient reports taking rn aspirin within the past 24 hours. Data reviewed: vital signs, nurses notes, lab test result(s), EKG, radiologic studies, plain films, and as a result, I will admit patient. 11:32 Counseling: I had a detailed discussion with the patient and/or guardian regarding the rn historical points, exam findings, and any diagnostic results supporting the discharge/admit diagnosis, lab results, radiology results, the need for further work-up and treatment in the hospital, the need to transfer to another facility, [facility] does not immediately have the required specialist. ED course: Discussed case with Dr. Baldwin, recommends patient transfer as we do not have stress test or cardiac cath availability for at least the next 2 days. Contacted [facility] cardiology and accepted for transfer.. 07/05 10:13 Order name: Basic Metabolic Panel; Complete Time: 10: rn 07/05 10:13 Order name: CBC with Diff; Complete Time: : rn 07/05 10:13 Order name: LFT's; Complete Time: : rn 07/05 10:13 Order name: NT PRO-BNP; Complete Time: : rn 07/05 10:13 Order name: Troponin HS; Complete Time: : rn 07/05 11:43 Order name: Ptt, Activated; Complete Time: 12:23 ko1 07/05 10:13 Order name: XRAY Chest (1 view); Complete Time: 13: rn 07/05 10:13 Order name: Cardiac monitoring; Complete Time: 10: rn 07/05 10:13 Order name: EKG - Nurse/Tech; Complete Time: 10: rn 07/05 10:13 Order name: IV Saline Lock; Complete Time: 10: rn 07/05 10:13 Order name: Labs collected and sent; Complete Time: 10: rn 07/05 10:13 Order name: O2 Per Protocol; Complete Time: 10: rn 07/05 10:13 Order name: O2 Sat Monitoring; Complete Time: 10:13 rn EC:42 Rate is 66 beats/min. Rhythm is regular. Left axis deviation noted. QRS is positive in rn lead I and negative in lead aVF. QRS interval is normal. QT interval is normal. No Q waves. T waves are Normal. No ST changes noted. Clinical impression: NSR w/ Non-specific ST/T Changes. Interpreted by me. Reviewed by me. Administered Medications: 11:34 CANCELLED (Physician Discretion): aspirinchewable tablet 162 mg PO once ko1 12:01 Drug: Heparin (LA-Bolus No thrombolytic) - HEParin IVP 60 units/kg IVP once; Max 5000 ko1 units {Co-Signature: aa5 (Deborah Medley RN).} Route: IVP; Site: left antecubital; 12:16 Follow up: Response: No adverse reaction ko1 12:01 Drug: Heparin (LA Drip) 12 units/kg/hr - ([place] [address] units, D5W IV 500 ml) IV at ko1 calculated rate Per protocol; Max initial rate 1000 units/hr {Co-Signature: aa5 (Deborah Medley RN).} Route: IV; Rate: 924 units/hr; Site: left antecubital; 13:09 Follow up: IV Status: Infusion continued upon transfer ko1 13:09 Follow up: Response: No adverse reaction ko1 Disposition Summary: 07/05/24 11:33 Transfer Ordered Notes: Transfer Location: [facility] rn Reason: Higher level of care rn Condition: Stable rn Problem: new rn Symptoms: have improved rn Accepting Physician: (07/05/24 13:19) ko1 Diagnosis - Non ST elevation LA rn Forms: - Medication Reconciliation Form rn - SBAR form rn Signatures: Dispatcher [employer] EDMS Lb Urena MD MD rn Oliver, Kathy, RN RN ko1 Deborah Medley RN aa5 Corrections: (The following items were deleted from the chart) 10:13 10:13 Chest Single View+RAD.RAD.BRZ ordered. EDMD EDMS 10:24 10:22 Allergies: NKA; ko1 ko1 11:34 11:32 Aspirin PO Chewable Tablet 162 mg PO once ordered. rn ko1 13:19 11:33 Dr. rios ko1
--- NOTE | 2024-07-05 11:33 | ER ---
Nurse's Notes [facility] Name: Josse Brumfield Age: 74 yrs Sex: Male : 1950 Arrival Date: 07/05/2024 Time: 10:11 Bed 3 Private MD: Diagnosis: Non ST elevation [place] Presentation: 07/05 10:20 Chief complaint: EMS states: patient began having chest pain this morning while working [employer] in his shop. Never had this before, took 2 baby aspirin prior to EMS arrival. Coronavirus screen: At this time, the client does not indicate any symptoms associated with coronavirus-19. Ebola Screen: No symptoms or risks identified at this time. Initial Sepsis Screen: Does the patient meet any 2 criteria? No. Patient's initial sepsis screen is negative. Does the patient have a suspected source of infection? No. Patient's initial sepsis screen is negative. Risk Assessment: Do you want to hurt yourself or someone else? Patient reports no desire to harm self or others. Onset of symptoms was July 05, 2024. Care prior to arrival: Medication(s) given: ASA, 81 mg, x 2, patient took 2 81mg aspirin prior to EMS arrival Nitroglycerin, 0.4 mg SL x 1, IV initiated. 18 GA, in the left antecubital area, Oxygen administered. via nasal cannula. 10:20 Method Of Arrival: EMS: [facility] ko1 10:20 Acuity: SHAHRZAD 2 ko1 Triage Assessment: 10:22 General: Appears in no apparent distress. Behavior is calm, cooperative, appropriate ko1 for age. Pain: Complains of pain in mid-sternal area. EENT: No deficits noted. Neuro: No deficits noted. Cardiovascular: Reports chest pain. Respiratory: No deficits noted. GI: No deficits noted. : No deficits noted. Derm: No deficits noted. Musculoskeletal: No deficits noted. Historical: - Allergies: 10:22 PENICILLINS; ko1 - Home Meds: 10:22 Unable to obtain [Active]; ko1 - PMHx: 10:22 ulcerative colitis; Hypertensive disorder; ko1 - PSHx: 10:22 carpal tunnel; ko1 - Immunization history:: Adult Immunizations up to date. - Infectious Disease History:: Denies. - Social history:: Smoking status: Patient denies any tobacco usage or history of. - Family history:: not pertinent. - Hospitalizations: : No recent hospitalization is reported. Screenin:25 [facility] ED Fall Risk Assessment (Adult) History of falling in the last 3 months, ko1 including since admission No falls in past 3 months (0 pts) Confusion or Disorientation No (0 pts) Intoxicated or Sedated No (0 pts) Impaired Gait No (0 pts) Mobility Assist Device Used No (0 pt) Altered Elimination No (0 pt) Score/Fall Risk Level 0 - 2 = Low Risk Oriented to surroundings, Maintained a safe environment, Educated pt \T\ family on fall prevention, incl call for assistance when getting out of bed, Assessed \T\ reinforced patient's understanding of fall precautions, Hourly rounding (assess needs \T\ fall precautionary measures) done. Abuse screen: Denies threats or abuse. Denies injuries from another. Nutritional screening: No deficits noted. Tuberculosis screening: No symptoms or risk factors identified. Assessment: 10:27 Reassessment: see triage note. Pain: Pain does not radiate. Pain began suddenly. ko1 Vital Signs: 10:20 BP 108 / 73; Pulse 62; Resp 16; Temp 97; Pulse Ox 98% on R/A; ko1 10:57 BP 116 / 76; Pulse 58; Resp 15; Pulse Ox 99% ; ko1 11:35 Weight 77.11 kg; ko1 13:17 BP 124 / 78; Pulse 60; Resp 16; Pulse Ox 99% ; ko1 ED Course: 10:12 Patient arrived in ED. rn 10:12 Lb Urena MD is Attending Physician. rn 10:13 Bernarda Dempsey, RN is Primary Nurse. ko1 10:19 Basic Metabolic Panel Sent. ko1 10:19 CBC with Diff Sent. ko1 10:19 LFT's Sent. ko1 10:19 Troponin HS Sent. ko1 10:19 NT PRO-BNP Sent. ko1 10:22 Triage completed. ko1 10:22 Arm band placed on right wrist. Patient placed in an exam room, on a stretcher, on ko1 assembler billiard table, on pulse oximetry, Patient notified of wait time. 10:23 XRAY Chest (1 view) In Process Unspecified. EDMS 10:25 No provider procedures requiring assistance completed. Initial lab(s) drawn, by me, ko1 sent to lab. EKG done, by ED staff, reviewed by Lb Urena MD. Maintain EMS IV. Dressing intact. Good blood return noted. Site clean \T\ dry. Gauge \T\ site: 18g left AC. Flushed with 10 mL NS. Patient maintains SpO2 saturation greater than 95% on room air. 10:25 Patient has correct armband on for positive identification. Allergy band placed. Placed ko1 in gown. Bed in low position. Call light in reach. Side rails up X2. Provided Education on: labs, meds. Client placed on continuous cardiac and pulse oximetry monitoring. NIBP monitoring applied. telephone directory distributor driver on. Door closed. Noise minimized. Lights dimmed. Warm blanket given. Pillow given. 10:27 ED physician to see patient. Pt visited by . ko1 10:55 Notified ED physician of a critical lab result(s). Troponin 87.0. kb3 11:[address] [facility]. bd 11:51 Ptt, Activated Sent. ko1 11:52 pt accepted in transfer to [facility] rm [id number] Dr Lira admit approval given by Xander Bauer. 13:17 Patient transferred, IV remains in place. ko1 Administered Medications: 11:34 CANCELLED (Physician Discretion): aspirinchewable tablet 162 mg PO once ko1 12:01 Drug: Heparin ([place]-Bolus No thrombolytic) - HEParin IVP 60 units/kg IVP once; Max 5000 ko1 units {Co-Signature: aaMckenzie (Deborah Medley RN).} Route: IVP; Site: left antecubital; 12:16 Follow up: Response: No adverse reaction ko1 12:01 Drug: Heparin ([place] Drip) 12 units/kg/hr - ([place] [address] units, D5W IV 500 ml) IV at ko1 calculated rate Per protocol; Max initial rate 1000 units/hr {Co-Signature: aa5 (Deborah Medley RN).} Route: IV; Rate: 924 units/hr; Site: left antecubital; 13:09 Follow up: IV Status: Infusion continued upon transfer ko1 13:09 Follow up: Response: No adverse reaction ko1 Medication: 10:25 VIS not applicable for this client. ko1 Outcome: 11:33 ER care complete, transfer ordered by rn 13:17 Transferred by ground EMS [facility] . [place] [facility] [facility] [place]1 completed. X-rays sent w/ patient. 13:18 Condition: stable ko1 13:18 Instructed on the need for transfer, 13:19 Patient left the ED. ko1 Signatures: Dispatcher [employer] EDMS Marisol Jeter Roman, MD MD rn Bradberry, Kelly RN RN kb3 Bernarda Dempsey RN RN ko1 Deborah Medley RN aa5 Corrections: (The following items were deleted from the chart) 10:24 10:22 Allergies: NKA; ko1 ko1
[2024-07-05] MEDS ORDERED: HEPARIN 5000 UNIT/ML 1 ML VIAL ONE (11:37)
[2024-07-05] MEDS ORDERED: HEPARIN/D5W 25,000 UNIT/500 ML BAG IV ONE (11:37)
--- NOTE | 2024-07-05 13:11 | RAD REPORT ---
EXAMINATION: ONE VIEW CHEST XR CLINICAL INDICATION: Male, 74 years old.,CHEST PAIN TECHNIQUE: Frontal chest projection is submitted. Examination is limited by patient positioning and t echnique. COMPARISON: December 31, 2018 FINDINGS: The lungs are well inflated and clear. No pneumothorax or sizable effusion. The heart is normal in s ize. Mediastinal contours are unremarkable. IMPRESSION: No acute intrathoracic abnormalities.
[2024-07-05 13:25] VITALS: TEMP 97
[2024-07-05 13:26] VITALS: O2SAT 99
[2024-07-05 13:27] VITALS: BP 124/78
--- NOTE | 2024-07-06 12:21 | EKG ---
Test Date: 2024-07-05 Test Time: 10:27:23 Home Hospice Aide: [place] MEASUREMENT RESULTS: Intervals: Rate: 66 MA: 156 QRSD: 116 QT: 398 QTc: 417 [place]: P: 32 MA: 156 QRS: -45 T: -2 INTERPRETIVE STATEMENTS: Sinus rhythm with occasional premature ventricular complexes Left axis deviation Septal infarct, age undetermined Abnormal ECG Compared to ECG 04/02/2019 13:33:45 Ventricular premature complex(es) now present Left-axis deviation now present Myocardial infarct finding now present Sinus bradycardia no longer present Electronically Signed On 07-06-24 12:17:30 WAREHOUSE ORDER FILLER by Eleazar Baldwin
== END 2024-07-05 13:19 | disposition short-term general hospital (02) ==
LOC: ER 10:11
DX: I21.4 Non-ST elevation (NSTEMI) myocardial infarction (principal); I10 Essential (primary) hypertension
CPT/HCPCS: 93005; 85025; 80048; 36415; 80076; 85730; 84484; 83880; 71045; J1644; 96365; 99285